=== PATIENT | male | born 1970 | race Caucasian/White ===

== ENCOUNTER 2018-11-30 08:00 | Inpatient (IN) | payer BC, OTHER ==
[2018-11-17 16:28] VITALS: BMI 38.7
[2018-12-04] MEDS ORDERED: CEFAZOLIN 2 GM in DEXTROSE 5%-WATER - 50 ML IVPB ONE (06:42)
[2018-12-04] MEDS ORDERED: oxyCODONE HCL 10 MG SUSTAINED ACTING TABLET PO ONE (06:42)
[2018-12-04] MEDS ORDERED: PANTOPRAZOLE 40 MG TABLET (FP) PO ONE (06:42)
[2018-12-04] MEDS ORDERED: TRANEXAMIC ACID 1000 MG/10 ML VIAL IVPUSH ONE (06:42)
[2018-12-04] MEDS ORDERED: CELECOXIB 200 MG CAPSULE PO ONE (06:42)
[2018-12-04] MEDS ORDERED: GABAPENTIN 300 MG CAPSULE (FP) PO ONE (06:42)
[2018-12-04] MEDS ORDERED: VANCOMYCIN 1,000 MG VIAL (RESTRICTED TO ID ONLY) ONE (13:39)
[2018-12-04] MEDS ORDERED: ceFAZolin SODIUM 1 GM VIAL ONE ×3 (13:39→18:11)
[2018-12-04] MEDS ORDERED: TRANEXAMIC ACID 1000 MG/10 ML VIAL ONE ×3 (13:39→14:34)
[2018-12-04] MEDS ORDERED: MIDAZOLAM HCL 2 MG/2 ML SINGLE DOSE VIAL ONE ×6 (13:49→18:24)
[2018-12-04] MEDS ORDERED: SODIUM CHLORIDE 0.9% P/F 10 ML VIAL IJ ONE (13:50)
[2018-12-04] MEDS ORDERED: BUPIVACAINE LIPOSOME/PF (EXPAREL) 266 MG/20 ML VIAL ONE (13:50)
[2018-12-04] MEDS ORDERED: BUPIVACAINE HCL/PF 0.5% (5 MG/ML) 30 ML VIAL IJ ONE ×2 (13:50→18:28)
[2018-12-04] MEDS ORDERED: ePHEDrine SULFATE 50 MG/1 ML AMPULE ONE (14:21)
[2018-12-04] MEDS ORDERED: PROPOFOL 20 ML ONE ×4 (14:21→17:30)
[2018-12-04] MEDS ORDERED: SUCCINYLCHOLINE CHLORIDE 200 MG/10 ML SYRINGE ONE (14:21)
[2018-12-04] MEDS ORDERED: PHENYLEPHRINE HCL 10 MG/1 ML SINGLE DOSE VIAL ONE (14:29)
[2018-12-04] MEDS ORDERED: DEXAMETHASONE SOD PHOSPHATE 4 MG/1 ML VIAL ONE (14:29)
[2018-12-04] MEDS ORDERED: ONDANSETRON 4 MG/2 ML VIAL ONE ×2 (14:29→18:11)
[2018-12-04] MEDS ORDERED: KETAMINE HCL 200 MG/20 ML VIAL ONE (18:23)
[2018-12-04] MEDS ORDERED: BUPIVACAINE HCL/PF 0.5% (5MG/ML) 10 ML VIAL ONE (18:25)
[2018-12-04] MEDS ORDERED: KETOROLAC TROMETHAMINE 30 MG/1 ML VIAL ONE (18:49)
[2018-12-04] MEDS ORDERED: traMADol HCL 50 MG TABLET ONE (18:49)
[2018-12-04] MEDS ORDERED: ACETAMINOPHEN INJECTION 100 ML IVPB ONE (18:49)
[2018-12-04] MEDS: KETOROLAC TROMETHAMINE 30 MG/1 ML VIAL IVPUSH SCH (19:15)
[2018-12-04] MEDS ORDERED: ONDANSETRON 4 MG/2 ML VIAL IVPUSH PRN ×2 (19:20→20:02)
[2018-12-04] MEDS ORDERED: oxyCODONE HCL 5 MG TABLET PO PRN ×2 (19:20)
[2018-12-04] MEDS: ACETAMINOPHEN 1000 MG/100 ML VIAL (NON FORMULARY) IVPB ONE ×2 (19:20→21:38)
[2018-12-04] MEDS ORDERED: PROMETHAZINE HCL 25 MG/1 ML VIAL IVPUSH PRN (19:20)
[2018-12-04] MEDS: traMADol HCL 50 MG TABLET PO SCH (19:25)
[2018-12-04] MEDS ORDERED: MONTELUKAST NA 10 MG TABLET PO PRN (20:00)
[2018-12-04] MEDS ORDERED: MAGNESIUM HYDROX 2400MG/30ML ORAL SUSPENSION 30 ML CUP PO PRN (20:02)
[2018-12-04] MEDS ORDERED: MAG HYDROX/AL HYDROX/SIMETH 30 ML UNIT-DOSE CUP PO PRN (20:02)
--- NOTE | 2018-12-04 20:05 | OP ---
Operative Note - Note: Operative Date: 12/04/18 Pre-Operative Diagnosis: right knee OA Operation: right ASHANTI TKA Post-Operative Diagnosis: Same as Pre-op Surgeon: Theron Moore Physical Meteorologist: Theo Rojas Anesthesia: Spinal Estimated Blood Loss (mls): 200
[2018-12-04] MEDS ORDERED: LACTATED RINGERS SOLUTION 1,000 ML IV SCH (20:15)
[2018-12-04] MEDS: ACETAMINOPHEN 325 MG TABLET (FP) PO SCH (21:37)
[2018-12-04] MEDS: SENNOSIDES/DOCUSATE COMBO (SENNA PLUS) TABLET (UD) PO SCH (21:46)
[2018-12-04] MEDS: oxyCODONE HCL 10 MG SUSTAINED ACTING TABLET PO SCH (21:47)
[2018-12-04] MEDS: ASCORBIC ACID 500 MG TABLET (FP) PO SCH (21:49)
[2018-12-04] MEDS: CELECOXIB 200 MG CAPSULE PO SCH (21:49)
[2018-12-04] MEDS: GABAPENTIN 300 MG CAPSULE (FP) PO SCH (21:49)
[2018-12-04] MEDS: INSULIN SLIDING SCALE (NOVOLOG) 1 VIAL SQ SCH (21:51)
--- NOTE | 2018-12-04 23:31 | SURG ---
Surgery Incident Commander Note Incident Commander: Theo Rojas PA-C Date of Service: 12/04/18 Diagnosis: right knee OA Procedure: Right knee ASHANTI TKA I was present for the entirety of the operative procedure. For further detail, please refer to operative report. Visit type - Case Type Case Type: Scheduled - New patient This patient is new to me today: Yes Date on this admission: 12/04/18
[2018-12-05] MEDS: ACETAMINOPHEN 325 MG TABLET (FP) PO SCH ×4 (01:39→20:16)
[2018-12-05] MEDS: CEFAZOLIN 2 GM/D5W 2 GM/50 ML ML IVPB SCH ×2 (01:39→10:48)
[2018-12-05] MEDS: traMADol HCL 50 MG TABLET PO SCH ×4 (01:40→20:16)
[2018-12-05] MEDS: KETOROLAC TROMETHAMINE 30 MG/1 ML VIAL IVPUSH SCH ×3 (01:41→13:29)
[2018-12-05] MEDS: PIOGLITAZONE HCL 15 MG TABLET (FP) PO SCH ×2 (08:37→16:19)
[2018-12-05] MEDS: ASPIRIN 325 MG TABLET PO SCH (08:37)
[2018-12-05] MEDS: INSULIN SLIDING SCALE (NOVOLOG) 1 VIAL SQ SCH ×4 (08:38→21:35)
[2018-12-05 08:39] LABS: HEMATOCRIT 34.2 % (35.4-49); HEMOGLOBIN 11.6 GM/dl (11.7-16.9); MCH 29.3 pg (25.7-33.7); MCHC 33.9 g/dl (32.0-35.9); MEAN CELL VOLUME 86.5 fl (80-96); MEAN PLT VOLUME 10.1 fl (7.5-11.1); PLATELET COUNT 258 K/MM3 (134-434); RBC 3.96 M/mm3 (4.00-5.60); RDW 12.9 % (11.9-15.9); WHITE BLOOD COUNT 12.4 K/mm3 (4.0-10.8)
[2018-12-05 08:58] LABS: CALCIUM 9.3 mg/dl (8.5-10); CREATININE 1.2 mg/dl (0.55-1.3); POTASSIUM 5.5 mmol/L (3.5-5.1)
[2018-12-05] MEDS ORDERED: PT OWN MED DRAWER 7, Y5N ONE ×3 (09:20→10:21)
[2018-12-05] MEDS: oxyCODONE HCL 10 MG SUSTAINED ACTING TABLET PO SCH ×2 (10:12→21:35)
[2018-12-05] MEDS: LOSARTAN POTASSIUM 50 MG TABLET (FP) PO SCH (10:12)
[2018-12-05] MEDS: ASCORBIC ACID 500 MG TABLET (FP) PO SCH ×2 (10:12→21:34)
[2018-12-05] MEDS: GABAPENTIN 300 MG CAPSULE (FP) PO SCH ×2 (10:12→21:35)
[2018-12-05] MEDS: PANTOPRAZOLE 40 MG TABLET (FP) PO SCH (10:12)
[2018-12-05] MEDS: CELECOXIB 200 MG CAPSULE PO SCH ×2 (10:12→21:33)
[2018-12-05] MEDS: MULTIVITAMINS (DAILY MVI) TABLET (FP) PO SCH (10:12)
[2018-12-05] MEDS: SENNOSIDES/DOCUSATE COMBO (SENNA PLUS) TABLET (UD) PO SCH ×2 (10:12→21:34)
[2018-12-05] MEDS ORDERED: SODIUM CHLORIDE 1,000 ML IV SCH (17:45)
[2018-12-06] MEDS: ACETAMINOPHEN 325 MG TABLET (FP) PO SCH ×3 (01:30→14:12)
[2018-12-06] MEDS: traMADol HCL 50 MG TABLET PO SCH ×3 (01:30→14:12)
[2018-12-06] MEDS ORDERED: INSULIN (NOVOLOG) ASPART 100 UNITS/ML 10ML VIAL ONE ×2 (07:57→11:25)
[2018-12-06] MEDS: ASPIRIN 325 MG TABLET PO SCH (08:06)
[2018-12-06] MEDS: PIOGLITAZONE HCL 15 MG TABLET (FP) PO SCH (08:07)
[2018-12-06] MEDS: INSULIN SLIDING SCALE (NOVOLOG) 1 VIAL SQ SCH ×2 (08:07→11:32)
[2018-12-06 08:19] LABS: HEMATOCRIT 29.2 % (35.4-49); HEMOGLOBIN 9.7 GM/dl (11.7-16.9); MCH 28.5 pg (25.7-33.7); MCHC 33.2 g/dl (32.0-35.9); MEAN CELL VOLUME 85.9 fl (80-96); MEAN PLT VOLUME 9.9 fl (7.5-11.1); PLATELET COUNT 211 K/MM3 (134-434); RDW 12.9 % (11.9-15.9)
--- NOTE | 2018-12-06 08:35 | PN ---
Progress Note (short form) - Note Progress Note: Pt seen and examined. Doing well. Pain well controlled. AVSS Selected Entries 12/06/18 12/06/18 03:00 06:49 Temperature 97.6 F Pulse Rate 73 Respiratory 18 Rate Blood Pressure 125/67 O2 Sat by Pulse 98 Oximetry (%) Oxygen Delivery Room Air Method Laboratory Tests 12/05/18 12/05/18 12/06/18 07:40 07:40 06:10 WBC 12.4 H 6.0 Hgb 11.6 L 9.7 L Hct 34.2 L 29.2 L Plt Count 258 211 Sodium 131 L Potassium 5.5 H Chloride 96 L Carbon Dioxide 25 Anion Gap 10 BUN 29.0 H Creatinine 1.2 Est GFR (CKD-EPI)AfAm 83.54 Est GFR (CKD-EPI)NonAf 72.08 Random Glucose 320 H* Calcium 9.3 Gen: NAD RLE: c/d/i, NVID A/P 48yo male s/p R TKA PT/OOB D/C home today
--- NOTE | 2018-12-06 09:24 | DS ---
Physical Examination Vital Signs: Vital Signs Temperature 97.6 F 12/06/18 03:00 Pulse Rate 73 12/06/18 03:00 Respiratory Rate 18 12/06/18 03:00 Blood Pressure 125/67 12/06/18 03:00 O2 Sat by Pulse Oximetry (%) 98 12/06/18 06:49 Labs: CBC, BMP 12/06/18 06:10 12/05/18 07:40 Discharge Summary Reason For Visit: RIGHT KNEE OSTEOARTHRITIS Current Active Problems Osteoarthritis of right knee (Acute) Procedures: Principal: right ASHANTI TKA Hospital Course: Admitted for elective surgery. Procedure performed without complications. Pt received postoperative antibiotic prophylaxis and DVT ppx. Ambulated with physical therapy. Stable for discharge home with outpatient followup. Condition: Stable - Instructions Diet, Activity, Other Instructions: Dr. Moore - Knee Replacement Instructions Keep the Aquacel dressing on until removed by Dr. Moore in 10-14 days - it is antibacterial and waterproof and you can shower with it on. Call the office for a follow-up appointment with Dr. Moore in 10-14 days. Take one enteric coated Aspirin 325mg daily for 6 weeks to prevent blood clots in your legs. Take one Pantoprazole 40mg daily for 6 weeks to protect against heartburn and ulcers. Take Cephalexin (antibiotic) 3x/day for 10 days to help prevent skin infection. Take Celebrex 200mg twice daily for 30 days to reduce swelling and inflammation. Take a multivitamin, stool softener, and extra Vitamin C supplement daily. For pain: *Mild pain (1-3/10): Take 1 Tramadol tablet every 4 hours as needed. Moderate pain (4-6/10): Take 1 Tramadol tablet and 1 Percocet tablet every 4 hours as needed. Severe pain (7-10/10): Take 1 Tramadol tablet and 2 Percocet tablets every 4 hours as needed. Activity: You can put as much weight on the operative leg as you want. Right after you get home, there will be a physical therapist coming to your house to help you walk around and bend/straighten your knee. After your follow-up appointment, you will be sent for more intensive outpatient physical therapy which will include machines and equipment that the home therapist cannot bring to your house. Always use a walker or cane for balance and to prevent falls. Expect to see swelling/bruising from the operative site all the way down to your toes. Wear the compression stocking on the operative side during the day to minimize how much swelling there is in your foot/ankle. Don't wear the stocking at night. You don't have to wear a stocking on the other side. Disposition: [facility]/HOME HEALTH CARE - Home Medications Comprehensive Discharge Medication List: Ambulatory Orders Montelukast Sodium [Singulair] 10 mg PO PRN 11/17/18 Losartan Potassium 100 mg PO DAILY 11/20/18 Pioglitazone HCl/Metformin HCl [Actoplus Met 15 mg-850 mg Tab] 1 each PO BID 06/09 Sitagliptin Phosphate [Januvia] 100 mg PO DAILY 11/20/18 Chromium Picolinate 200 mcg PO DAILY 12/04/18 Ascorbic Acid [Vitamin C -] 500 mg PO BID tablet 12/06/18 Aspirin [ASA -] 325 mg PO DAILY@0800 tablet 12/06/18 Celecoxib [CeleBREX -] 200 mg PO BID #60 capsule 12/06/18 Cephalexin Monohydrate [Keflex -] 500 mg PO TID #30 capsule 12/06/18 Multivitamins [Multivit ([facility] Formul[facility])] 1 tab PO DAILY tab 12/06/18 Oxycodone HCl/Acetaminophen [Percocet 5-325 mg Tablet] 1 - 2 tab PO Q4H PRN #60 tablet MDD 10 12/06/18 Pantoprazole Sodium [Protonix -] 40 mg PO DAILY #40 tablet.ec 12/06/18 Sennosides/Docusate Sodium [Pericolace -] 2 tablet PO BID tablet 12/06/18 traMADol HCL [Ultram -] 50 mg PO Q4H PRN #60 tablet MDD 6 12/06/18
[2018-12-06 09:27] VITALS: BP 123/60; PULSE 72; TEMP 98.2
[2018-12-06] MEDS ORDERED: PT OWN MED DRAWER 7, Y5N ONE (09:48)
[2018-12-06] MEDS: GABAPENTIN 300 MG CAPSULE (FP) PO SCH (09:51)
[2018-12-06] MEDS: SENNOSIDES/DOCUSATE COMBO (SENNA PLUS) TABLET (UD) PO SCH (09:51)
[2018-12-06] MEDS: LOSARTAN POTASSIUM 50 MG TABLET (FP) PO SCH (09:51)
[2018-12-06] MEDS: ASCORBIC ACID 500 MG TABLET (FP) PO SCH (09:51)
[2018-12-06] MEDS: MULTIVITAMINS (DAILY MVI) TABLET (FP) PO SCH (09:51)
[2018-12-06] MEDS: PANTOPRAZOLE 40 MG TABLET (FP) PO SCH (09:51)
[2018-12-06] MEDS: CELECOXIB 200 MG CAPSULE PO SCH (09:51)
[2018-12-06] MEDS: oxyCODONE HCL 10 MG SUSTAINED ACTING TABLET PO SCH (09:52)
--- NOTE | 2018-12-08 15:09 | PATH ---
Surgical Pathology Report Patient Name: SASHA CURRY Med. Rec. #: [id number] /Age/Gender: 1970 (Age: 48) / M Account: [id number] Location: [facility] Taken: 12/04/2018 Received: 12/04/2018 Reported: 12/08/2018 Physicians: Theron Moore M.D. Specimen(s) Received BONE RIGHT KNEE Clinical History Osteoarthritis right knee Final Diagnosis BONE, KNEE, RIGHT, TOTAL KNEE REPLACEMENT MAKOPLASTY: BONE WITH DEGENERATIVE JOINT DISEASE, DENSE FIBROCONNECTIVE TISSUE, AND FIBROADIPOSE TISSUE. FIBROSYNOVIAL TISSUE WITH ACUTE AND CHRONIC INFLAMMATION AND REACTIVE CHANGES. Electronically Signed Brianna Fitch M.D. Gross Description Received in formalin labeled "bone right knee," is a 12.5 x 11.5 x 2.2 cm aggregate of multiple portions of bone and soft tissue, consistent with knee bones. One of the bones displays a 2.5 cm in greatest dimension area of eburnation. The remaining articular surfaces are patel-yellow and diffusely granular. The underlying trabecular bone is yellow and hard. Glass Lathe Operator sections are submitted in one cassette, following decalcification. 12/07/2018 [facility]/07/2018
== END 2018-12-06 14:30 | disposition home health service (06) | DRG 470 ==
LOC: FM/S 12-04 10:02
PROVIDERS: ADMIT Student in an Organized Health Care Education/Training Program; ATTEND Student in an Organized Health Care Education/Training Program
PROC: 0SRC0JZ Replacement of Right Knee Joint with Synthetic Substitute, Open Approach (ICD-10-PCS; principal; 2018-12-04 15:00)
DX: M17.11 Unilateral primary osteoarthritis, right knee (principal); I10 Essential (primary) hypertension; E11.9 Type 2 diabetes mellitus without complications
CPT/HCPCS: 36415; 73560-TC-RT-FY; 80048; 82962; 85027; 86803; 87389; 88305-TC; 88311-TC; 94760; 97116-GP; 97161-GP; J0131; J7030